=== PATIENT | male | born 1965 | race Hispanic/Latino ===

== ENCOUNTER 2020-07-08 07:51 | Outpatient (CLI) | payer OTHER ==
--- NOTE | 2020-07-08 08:45 | RAD ---
THORACAIC SPINE 3 VIEWS: Date: 07/08/2020 HISTORY: Acute left-sided thoracic pain. FINDINGS: Mild generalized spondylosis. No focal bone lesion. No acute fracture or dislocation. IMPRESSION: Mild spondylosis. No acute process. Depending on concern, follow-up imaging with MRI study on a nonemergent basis might be considered. POS: OFF
--- NOTE | 2020-07-08 08:46 | RAD ---
CERVICAL SPINE 3 VIEWS: Date: 07/08/2020 HISTORY: Acute left-sided thoracic pain. FINDINGS: Portions of C1 and C2 odontoid are obscured on the AP open-mouth views. No evidence for acute fractur e or dislocation, or significant malalignment. IMPRESSION: No fracture, dislocation, or other acute process. POS: OFF
[2020-07-08 10:22] LABS: Hemoglobin A1c 6.2 % (4.0-6.0)
[2020-07-08 11:00] LABS: ALT (SGPT) 36 U/L (8-55); AST (SGOT) 17 U/L (5-34); Albumin 4.7 g/dL (3.5-5.0); Alkaline Phosphatase 83 U/L (40-110); Anion Gap 18 mmol/L (10-20); BUN (Urea Nitrogen) 14 mg/dL (8.4-25.7); Bilirubin, Total 0.8 mg/dL (0.2-1.2); Calc. Creatinine Clearance 0 mL/min (70-130); Calcium 10.3 mg/dL (7.8-10.44); Carbon Dioxide 23 mmol/L (22-29); Cardiac Risk 5.6 (Less than 4.5); Chloride 100 mmol/L (98-107); Cholesterol 195 mg/dl (< 200 Desired); Estimated GFR-MDRD 74; Glucose 126 mg/dL (70-105); HDL Cholesterol 35 mg/dL (>60 Neg Risk); LDL Cholesterol, Calculated 112 mg/dL; Potassium 4.1 mmol/L (3.5-5.1); Protein, Total 7.7 g/dL (6.0-8.3); Sodium 137 mmol/L (136-145); Triglycerides 238 mg/dL (Less than 150)
== END 2020-07-08 07:52 | disposition home or self-care (01) ==
LOC: SCSRAD 07:51
PROVIDERS: ATTEND Family Medicine
DX: Z12.5 Encounter for screening for malignant neoplasm of prostate (principal); M54.6 Pain in thoracic spine; E78.5 Hyperlipidemia, unspecified; R73.03 Prediabetes; M47.814 Spondylosis without myelopathy or radiculopathy, thoracic region
CPT/HCPCS: 36415; 72040; 72072; 80053; 80061; 83036; G0103